=== PATIENT | female | born 1965 | race American Indian/Alaskan Native ===

== ENCOUNTER 2017-05-12 14:42 | Emergency (ER) | payer OTHER ==
[2017-05-12 14:51] VITALS: BP 167/92
[2017-05-12] MEDS ORDERED: NORCO 7.5/325 PO ONE (15:12)
[2017-05-12] MEDS ORDERED: BOOSTRIX IM ONE (15:12)
--- NOTE | 2017-05-12 15:16 | Emergency Department Report ---
Abscess Boil HPI - HPI Chief Complaint: Skin/Abscess/Foreign Body Stated Complaint: ABSCESS Time Seen by Provider: 05/12/17 14:55 Duration: 5 Days Location: Other (left buttock region) Severity: Mild History: Yes Pain, Yes Purulent Drainage, No Fever, No Numbness, No Foreign Body , No Previous History, No Insect Bite HPI: This is a 51-year-old female nontoxic, well nourished in appearance, no acute signs of distress presents to the ED with c/o of abscess to the left buttock region. Patient stated that yesterday there was greater than occur. He denies any fever, chills, nausea, vomiting, chest pain shortness of breath. Patient denies up-to-date with tetanus. Denies any allergies. Past medical history includes hypertension. Home Medications: Home Medications Medication Instructions Recorded Confirmed Last Taken Lisinopril/Hydrochlorothiazide 1 tab PO QDAY 03/19/15 03/19/15 1 Day Ago [Zestoretic 10-12.5 mg] ~03/18/15 amLODIPine [Norvasc] 10 mg PO DAILY 03/19/15 03/19/15 1 Day Ago ~03/18/15 Previous Rx's Medication Instructions Recorded Last Taken Type Ibuprofen [Motrin] 800 mg PO Q8HR PRN #10 tablet 03/19/15 Unknown Rx Clindamycin [Clindamycin CAP] 300 mg PO Q8H 7 Days cap 05/12/17 Unknown Rx traMADol [Ultram] 50 mg PO Q6HR PRN #15 tablet 05/12/17 Unknown Rx Allergies/Adverse Reactions: Allergies Allergy/AdvReac Type Severity Reaction Status Date / Time No Known Allergies Allergy Unverified 03/19/15 10:39 ED Review of Systems ROS: Stated complaint: ABSCESS Other details as noted in HPI Constitutional: denies: chills, fever Eyes: denies: eye pain, eye discharge, vision change ENT: denies: ear pain, throat pain Respiratory: denies: cough, shortness of breath, wheezing Cardiovascular: denies: chest pain, palpitations Endocrine: no symptoms reported Gastrointestinal: denies: abdominal pain, nausea, diarrhea Genitourinary: denies: urgency, dysuria, discharge Musculoskeletal: denies: back pain, joint swelling, arthralgia Skin: denies: rash, lesions Neurological: denies: headache, weakness, paresthesias Psychiatric: denies: anxiety, depression Hematological/Lymphatic: denies: easy bleeding, easy bruising ED Past Medical Hx - Past Medical History Previous Medical History?: Yes Hx Hypertension: Yes - Surgical History Past Surgical History?: Yes Additional Surgical History: hysterectomy. D&C. tonsillectomy. rotator cuff - Social History Smoking Status: Never Smoker Substance Use Type: None - Medications Home Medications: Home Medications Medication Instructions Recorded Confirmed Last Taken Type Ibuprofen [Motrin] 800 mg PO Q8HR PRN #10 tablet 03/19/15 Unknown Rx Lisinopril/Hydrochlorothiazide 1 tab PO QDAY 03/19/15 03/19/15 1 Day Ago History [Zestoretic 10-12.5 mg] ~03/18/15 amLODIPine [Norvasc] 10 mg PO DAILY 03/19/15 03/19/15 1 Day Ago History ~03/18/15 Clindamycin [Clindamycin CAP] 300 mg PO Q8H 7 Days cap 05/12/17 Unknown Rx traMADol [Ultram] 50 mg PO Q6HR PRN #15 tablet 05/12/17 Unknown Rx ED Abscess Boil Physical Exam - Exam General: Vital signs noted. No distress. Alert and acting appropriately. GENERAL: The patient is a well-developed, well-nourished in no apparent distress. Patient is alert and acting appropriately for age. Alert and oriented 3, no apparent distress, normal gait, atraumatic. HEENT: Head is normocephalic and atraumatic. PERRL, Extraocular muscles are intact. Pupils are equal, round, and reactive to light and accommodation. Nares appeared normal. Mouth is well hydrated and without lesions. Mucous membranes are moist. Posterior pharynx clear of any exudate or lesions. Mouth is well hydrated and without lesions. Tonsils not erythematous or swollen. Uvula midline. Tongue elevated. Mucous members are moist. Posterior pharynx clear, no exudate or lesions. Patent airways. NECK: Supple. No carotid bruits. No lymphadenopathy or thyromegaly.nontender. No meningitic signs are noted. LUNGS: Clear to auscultation. Non labor breathing. No intercostal retractions. Symmetrical with respiration, no wheezing, no rales, or crackles. HEART: Regular rate and rhythm without murmur, rubs or gallops. No reproducible. S1, S2 present, regular rate and rhythm without murmur, no rubs, no gallops. ABDOMEN: Soft, nontender, and nondistended. Positive bowel sounds. No hepatosplenomegaly was noted. No guarding or rebound tenderness, negative epigastric bruit. Negative psoas sign, negative duke sign, negative McBurneys sign EXTREMITIES: Without any cyanosis, clubbing, rash, lesions or edema. Peripheral pulses intact. Capillary refill less than 2 seconds. Full range of motion bilaterally. NEUROLOGIC: Cranial nerves II through XII are grossly intact. Alert and oriented x 3. Normal gait. Symmetrical strength and sensation. Reflexes 2+ throughout. Cerebellar testing normal. GCS score of 15. PSYCHIATRIC: Normal affect with no suicidal or homicidal ideations. Skin: 3 cm erythema, swelling to left buttock region. Positive induration and flutance noted. Slight drainage noted. Front/Back of Body, Lg (Color): 1 - abscess Size: 3 cm Exam: Yes Tenderness, Yes Fluctuance, Yes Normal Neurologic Exam, Yes Normal Circulation, No Surrounding Cellulites/Erythema, No Lymphangitis, No Crepitation , No Heart Murmur I & D Note - I & D Note I & D Note: Under sterile field, I used Betadine to cleanse the area. I then used 0.1% Marcaine plain with 25-gauge 5/8 needle to inject area for anesthetic purposes. Total volume injected 3 mL. I then used an 11 blade to make a 1 cm incision. About 5 mL's of purulent drainage has been noted. I then used a hemostat to break the abscess formation. I then used sterile 0.9% normal saline flush to flush the wound with total volume of 40 mL used. I then put a 1 /4 iodoform packing to the incision. A sterile 4 x 4 with tape has been applied as dressing. Bleeding is under control. Patient tolerated the procedure well with no signs of distress noted. ED Course Vital Signs 05/12/17 14:46 Temperature 99.7 F H Pulse Rate 75 Respiratory 16 Rate Blood Pressure 167/92 O2 Sat by Pulse 100 Oximetry - Reevaluation(s) Reevaluation #1: 05/12/17 15:16 Patient is speaking in full sentences with no signs of distress noted. Critical care attestation.: If time is entered above; I have spent that time in minutes in the direct care of this critically ill patient, excluding procedure time. ED Medical Decision Making - Medical Decision Making This is a 51-year-old female that presents with abscess. Patient is stable and was examined by me. An incision and drainage has been performed and patient are well. Patient's friend Lesli Medel is present at the bedside and stated she will go the patient home after discharge due to drowsiness of [place]. Patient received a tetanus booster and ED. Patient was instructed to return and 2 days for packing removal and reassessment of the abscess. Patient is discharged with clindamycin. Patient was referred instructed to Follow-up with a primary care doctor in 3-5 days or if symptoms worsen and continue return to emergency room as soon as possible. At time of discharge, the patient does not seem toxic or ill in appearance. No acute signs of distress noted. Patient agrees to discharge treatment plan of care. No further questions noted by the patient.At time of discharge, the patient does not seem toxic or ill in appearance. No acute signs of distress noted. Patient agrees to discharge treatment plan of care. No further questions noted by the patient. ED Disposition Clinical Impression: Abscess, Encounter for incision and drainage procedure Disposition: DC-01 TO HOME OR SELFCARE Is pt being admited?: No Does the pt Need Aspirin: No Condition: Stable Instructions: Clindamycin (By mouth), Tramadol (By mouth), Abscess Incision and Drainage (ED), Abscess (ED) Additional Instructions: Follow-up with a primary care doctor in 3-5 days or if symptoms worsen and continue return to emergency room as soon as possible. Prescriptions: Clindamycin [Clindamycin CAP] 300 mg PO Q8H 7 Days cap traMADol [Ultram] 50 mg PO Q6HR PRN #15 tablet PRN Reason: Pain Referrals: PRIMARY CARE, [Primary Care Provider] - 3-5 Days YESICA AGUERO MD [Staff Physician] - 3-5 Days [facility] [Outside] - 3-5 Days [facility] [Outside] - 3-5 Days Forms: Work/School Release Form(ED)
[2017-05-12] MEDS ORDERED: MOTRIN PO ONE (15:18)
== END 2017-05-12 17:13 | disposition home or self-care (01) ==
LOC: ED 14:42
DX: L02.31 Cutaneous abscess of buttock (principal); I10 Essential (primary) hypertension
CPT/HCPCS: 90471; 90715

== ENCOUNTER 2017-05-15 13:57 | Emergency (ER) | payer OTHER ==
[2017-05-15 14:09] VITALS: BP 182/98
--- NOTE | 2017-05-15 14:12 | Emergency Department Report ---
ED Recheck HPI - General Chief Complaint: Skin/Abscess/Foreign Body Stated Complaint: WOUND CHECK Time Seen by Provider: 05/15/17 14:11 Source: patient Mode of arrival: Ambulatory Limitations: No Limitations - History of Present Illness Initial Comments: This is a 51-year-old female nontoxic, well nourished in appearance, no acute signs of distress presents to the ED with c/o of abscess packing removal from right buttock region. Patient stated she had this placed 3 days ago. Patient denies any fever, chills, headache, nausea, vomiting, chest pain, shortness of breathe, numbness, tingling. Patient denies any swelling. Patient stated swelling has subsided. Patient denies any allergies or PMH. PAtient stated is taking antibiotics. MD Complaint: wound re-check -: days(s) (3) Initial Visit For: abscess Returns Today for: wound recheck Symptoms Since Prior Visit: no new symptoms, improved Context: planned re-check Associated Symptoms: none. denies: fever, chills, chest pain, shortness of breath, rash, malaise, [place], abdominal pain - Related Data Home Medications Medication Instructions Recorded Confirmed Last Taken Lisinopril/Hydrochlorothiazide 1 tab PO QDAY 03/19/15 03/19/15 1 Day Ago [Zestoretic 10-12.5 mg] ~03/18/15 amLODIPine [Norvasc] 10 mg PO DAILY 03/19/15 03/19/15 1 Day Ago ~03/18/15 Previous Rx's Medication Instructions Recorded Last Taken Type Ibuprofen [Motrin] 800 mg PO Q8HR PRN #10 tablet 03/19/15 Unknown Rx Clindamycin [Clindamycin CAP] 300 mg PO Q8H 7 Days cap 05/12/17 Unknown Rx traMADol [Ultram] 50 mg PO Q6HR PRN #15 tablet 05/12/17 Unknown Rx Allergies Allergy/AdvReac Type Severity Reaction Status Date / Time No Known Allergies Allergy Unverified 03/19/15 10:39 ED Review of Systems ROS: Stated complaint: WOUND CHECK Other details as noted in HPI Constitutional: denies: chills, fever Eyes: denies: eye pain, eye discharge, vision change ENT: denies: ear pain, throat pain Respiratory: denies: cough, shortness of breath, wheezing Cardiovascular: denies: chest pain, palpitations Endocrine: no symptoms reported Gastrointestinal: denies: abdominal pain, nausea, diarrhea Genitourinary: denies: urgency, dysuria, discharge Musculoskeletal: denies: back pain, joint swelling, arthralgia Skin: denies: rash, lesions Neurological: denies: headache, weakness, paresthesias Psychiatric: denies: anxiety, depression Hematological/Lymphatic: denies: easy bleeding, easy bruising ED Past Medical Hx - Past Medical History Hx Hypertension: Yes Additional medical history: abscess I&d - Surgical History Additional Surgical History: hysterectomy. D&C. tonsillectomy. rotator cuff - Social History Smoking Status: Never Smoker Substance Use Type: None - Medications Home Medications: Home Medications Medication Instructions Recorded Confirmed Last Taken Type Ibuprofen [Motrin] 800 mg PO Q8HR PRN #10 tablet 03/19/15 Unknown Rx Lisinopril/Hydrochlorothiazide 1 tab PO QDAY 03/19/15 03/19/15 1 Day Ago History [Zestoretic 10-12.5 mg] ~03/18/15 amLODIPine [Norvasc] 10 mg PO DAILY 03/19/15 03/19/15 1 Day Ago History ~03/18/15 Clindamycin [Clindamycin CAP] 300 mg PO Q8H 7 Days cap 05/12/17 Unknown Rx traMADol [Ultram] 50 mg PO Q6HR PRN #15 tablet 05/12/17 Unknown Rx ED Physical Exam - General Limitations: No Limitations General appearance: alert, in no apparent distress - Head Head exam: Present: atraumatic, normocephalic - Eye Eye exam: Present: normal appearance - ENT ENT exam: Present: mucous membranes moist - Neck Neck exam: Present: normal inspection - Respiratory Respiratory exam: Present: normal lung sounds bilaterally. Absent: respiratory distress - Cardiovascular Cardiovascular Exam: Present: regular rate, normal rhythm. Absent: systolic murmur, diastolic murmur, rubs, gallop - GI/Abdominal GI/Abdominal exam: Present: soft, normal bowel sounds - Extremities Exam Extremities exam: Present: normal inspection - Back Exam Back exam: Present: normal inspection - Neurological Exam Neurological exam: Present: alert, oriented X3 - Psychiatric Psychiatric exam: Present: normal affect, normal mood - Skin Skin exam: Present: warm, dry, intact, normal color. Absent: rash - Other Other exam information: 2 cm incision of 1/4 packing. No pus or drainage noted. No swelling or induration noted. No surrounding cellulitis noted. ED Course Vital Signs 05/15/17 14:07 Temperature 98.3 F Pulse Rate 69 Respiratory 18 Rate Blood Pressure 182/98 O2 Sat by Pulse 100 Oximetry - Reevaluation(s) Reevaluation #1: 05/15/17 15:29 Patient is speaking in full sentences with no signs of distress noted. ED Recheck MDM - Medical Decision Making This is a 51-year-old female that presents with packing removal. One fourth 4 packing removed. No pus or drainage noted. No induration or fluctuance. No cellulitis or abscess formation. Patient will take antibiotics and I encouraged her to finish it. Patient was educated on proper wound care. At time of discharge, the patient does not seem toxic or ill in appearance. No acute signs of distress noted. Patient agrees to discharge treatment plan of care. No further questions noted by the patient. Critical care attestation.: If time is entered above; I have spent that time in minutes in the direct care of this critically ill patient, excluding procedure time. ED Disposition Clinical Impression: Encounter for wound re-check, Abscess packing removal Disposition: DC-01 TO HOME OR SELFCARE Is pt being admited?: No Does the pt Need Aspirin: No Condition: Stable Instructions: Acute Wound Care (ED) Additional Instructions: Follow-up with a primary care doctor in 3-5 days or if symptoms worsen and continue return to emergency room as soon as possible. Continue taking Antibiotics as prescribed. Referrals: PRIMARY CARE, [Primary Care Provider] - 3-5 Days Forms: Work/School Release Form(ED)
== END 2017-05-15 15:43 | disposition home or self-care (01) ==
LOC: ED 13:57
DX: Z48.01 Encounter for change or removal of surgical wound dressing (principal); I10 Essential (primary) hypertension
CPT/HCPCS: 99282

== ENCOUNTER 2017-06-29 16:14 | Emergency (ER) | payer OTHER ==
[2017-06-29] MEDS ORDERED: FIORICET PO ONE (23:07)
--- NOTE | 2017-06-29 23:25 | Emergency Department Report ---
HPI - General Chief Complaint: High BP Time Seen by Provider: 06/29/17 23:07 - HPI HPI: Patient is a 51-year-old female with a history of blood pressure presents to ED for elevated blood pressure. Patient states she was at her primary care doctor office earlier today when her blood pressure was 210/110. Patient was sent home to take her blood pressure medication. Patient states she took her blood pressure medicine to bring the pressure. Patient states she went to the pharmacy to berry picker her nifedipine which she took prior to arrival at the ED which brought her blood pressure down. Patient states that she is experiencing headache couple of hours ago which may be due to the fact that she has not eaten any food since 4 o clock today. She denies chest pain shortness of breath , dizziness, lightheadedness, blurred vision or any other symptoms ED Past Medical Hx - Past Medical History Hx Hypertension: Yes Additional medical history: abscess I&d - Surgical History Past Surgical History?: Yes Additional Surgical History: hysterectomy. D&C. tonsillectomy. rotator cuff - Social History Smoking Status: Never Smoker Substance Use Type: None - Medications Home Medications: Home Medications Medication Instructions Recorded Confirmed Last Taken Type Ibuprofen [Motrin] 800 mg PO Q8HR PRN #10 tablet 03/19/15 Unknown Rx Lisinopril/Hydrochlorothiazide 1 tab PO QDAY 03/19/15 03/19/15 1 Day Ago History [Zestoretic 10-12.5 mg] ~03/18/15 amLODIPine [Norvasc] 10 mg PO DAILY 03/19/15 03/19/15 1 Day Ago History ~03/18/15 Clindamycin [Clindamycin CAP] 300 mg PO Q8H 7 Days cap 05/12/17 Unknown Rx traMADol [Ultram] 50 mg PO Q6HR PRN #15 tablet 05/12/17 Unknown Rx ED Review of Systems ROS: Stated complaint: HTN Other details as noted in HPI Constitutional: denies: chills, fever Eyes: denies: eye pain, eye discharge, vision change ENT: denies: ear pain, throat pain Respiratory: denies: cough, shortness of breath, wheezing Cardiovascular: denies: chest pain, palpitations Endocrine: no symptoms reported Gastrointestinal: denies: abdominal pain, nausea, diarrhea Genitourinary: denies: urgency, dysuria, discharge Musculoskeletal: denies: back pain, joint swelling, arthralgia Skin: denies: rash, lesions Neurological: denies: headache, weakness, paresthesias Psychiatric: denies: anxiety, depression Hematological/Lymphatic: denies: easy bleeding, easy bruising Physical Exam - Physical Exam Vital Signs: Vital Signs 06/29/17 16:32 Temperature 98.3 F Pulse Rate 56 L Blood Pressure 168/101 O2 Sat by Pulse 100 Oximetry Physical Exam: GENERAL: Alert and oriented x3, no apparent distress, Normal Gait, atraumatic. HEAD: Head is normocephalic and a-traumatic. EYES: Extra ocular muscles are intact. Pupils are equal, round, and reactive to light and accommodation. NECK: Supple. Non edematous, No lymphadenopathy or thyromegaly. No C-spine tenderness LUNGS: Symetrical with respiration, No wheezing, no rales or crackles, CTAB. HEART: S1, S2 present, regular rate and rhythm without murmur, no rubs, no gallops. Non tender to palpation EXTREMITIES/MUSCULOSKELETAL: No cyanosis, clubbing, rash, lesions or edema. Full ROM bilaterally. NEUROLOGIC: The patient is cooperative with no focal neurologic deficits. Cranial nerves II through XII are grossly intact. Normal speech. Normal sensation in bilateral upper and lower extremities, No loss of sensation, SKIN: Warm and dry, No lesions, No ulceration or induration present. ED Course Vital Signs 06/29/17 16:32 Temperature 98.3 F Pulse Rate 56 L Blood Pressure 168/101 O2 Sat by Pulse 100 Oximetry ED Medical Decision Making - Medical Decision Making 51-year-old female presents with elevated blood pressure. ED course: Patient received Fioricet in the ED for headache and some snacks/ food. EKG was obtained. EKG which shows no a abnormality within normal limits. I discussed this with the patient. Discussed patient to continue taking her blood pressure medication. Patient was not given medication ED due normalized blood pressure here in the ED. I discussed the patient to monitor blood pressure daily and take blood pressure medication as needed I also discussed follow-up with the primary care physician to manage and treat her hypertension and possibly change her dosing is current medication is not manage her blood pressure. Patient had no neurological deficit. Vital signs are normal she is in no acute or respiratory distress. Patient had an uneventful ED stay. Critical care attestation.: If time is entered above; I have spent that time in minutes in the direct care of this critically ill patient, excluding procedure time. ED Disposition Clinical Impression: Uncontrolled hypertension Disposition: DC-01 TO HOME OR SELFCARE Is pt being admited?: No Does the pt Need Aspirin: No Condition: Stable Instructions: Hypertension (ED) Additional Instructions: Make sure to follow up with your primary care physician as discussed. Continue to take Take l your medications as you've been prescribed. If you have any worsening symptoms or develop new symptoms please return to ED immediately. Referrals: PRIMARY CARE, [Primary Care Provider] - 3-5 Days Forms: Accompanied Note, Work/School Release Form(ED) Time of Disposition: 23:33
[2017-06-30 00:07] VITALS: BP 169/98
== END 2017-06-29 23:55 | disposition home or self-care (01) ==
LOC: ED 16:14
DX: I10 Essential (primary) hypertension (principal); Z90.710 Acquired absence of both cervix and uterus; Z90.89 Acquired absence of other organs
CPT/HCPCS: 93005; 93010; 99282

== ENCOUNTER 2017-07-04 18:43 | Emergency (ER) | payer OTHER ==
--- NOTE | 2017-07-05 01:31 | Emergency Department Report ---
HPI - General Chief Complaint: High BP Time Seen by Provider: 07/05/17 01:03 - HPI HPI: This is a 51-year-old female here concerned about her blood pressure. She says she has a history of high blood pressure and she was at work today and her blood pressure was very high and she says that the bottom one was 177 but was not sure whether it was the bottom where the top and said that it might have been the top one. She denies any shortness of breath or chest pain. She said earlier in the day she was having some neck pain and some dizziness that how she knew her blood pressure was elevated. She came to the emergency room and she is asymptomatic without any headache, dizziness, shortness of breath, chest pain, nausea or vomiting or blurred vision. Patient sees Dr. Rojas who is her primary care physician and she is on nifedipine and valsartan/HCTZ. Her pain is 0/10 at present. She did not take any medication for high blood pressure and was checked out by EMS that she call the work but decided that she would not come to the hospital by EMS and waited until she was off work to come to the hospital. Patient was here on 06/29/2017 with same complaint and was referred to her primary care physician. Her blood pressure was elevated with diastolic being a 101 but prior to discharge her blood pressure stabilized without any medication. She did not follow up with her primary care physician. ED Past Medical Hx - Past Medical History Previous Medical History?: Yes Hx Hypertension: Yes Additional medical history: abscess I&d - Surgical History Past Surgical History?: Yes Additional Surgical History: hysterectomy. D&C. tonsillectomy. rotator cuff repair right arm - Social History Smoking Status: Never Smoker Substance Use Type: Prescribed - Medications Home Medications: Home Medications Medication Instructions Recorded Confirmed Last Taken Type Ibuprofen [Motrin] 800 mg PO Q8HR PRN #10 tablet 03/19/15 Unknown Rx Lisinopril/Hydrochlorothiazide 1 tab PO QDAY 03/19/15 03/19/15 1 Day Ago History [Zestoretic 10-12.5 mg] ~03/18/15 amLODIPine [Norvasc] 10 mg PO DAILY 03/19/15 03/19/15 1 Day Ago History ~03/18/15 Clindamycin [Clindamycin CAP] 300 mg PO Q8H 7 Days cap 05/12/17 Unknown Rx traMADol [Ultram] 50 mg PO Q6HR PRN #15 tablet 05/12/17 Unknown Rx ED Review of Systems ROS: Stated complaint: HTN Other details as noted in HPI Comment: All other systems reviewed and negative Constitutional: no symptoms reported Eyes: denies: eye pain, vision change ENT: denies: epistaxis, congestion Respiratory: no symptoms reported Cardiovascular: other (patient here complaining of elevated blood pressure work today and she is asymptomatic and emergency room but reported that she had neck pain at work. She drove herself to the hospital). denies: chest pain, palpitations, dyspnea on exertion, orthopnea, edema, syncope, paroxysmal nocturnal dyspnea Gastrointestinal: denies: abdominal pain, nausea, vomiting, hematochezia Genitourinary: denies: hematuria Musculoskeletal: denies: back pain, joint swelling, arthralgia Skin: denies: rash Neurological: denies: headache, weakness, numbness, paresthesias, confusion, abnormal gait, vertigo, other Physical Exam - Physical Exam Vital Signs: Vital Signs 07/04/17 19:02 Temperature 98.6 F Pulse Rate 68 Respiratory 20 Rate Blood Pressure 143/95 O2 Sat by Pulse 100 Oximetry Vital Signs 07/04/17 07/05/17 07/05/17 19:02 01:40 01:58 Temperature 98.6 F 98.6 F Pulse Rate 68 54 L 55 L Respiratory 20 17 Rate Blood Pressure 143/95 Blood Pressure 151/89 [Left] Blood Pressure 148/85 [Right] O2 Sat by Pulse 100 100 Oximetry General: This Is a 51-year-old female well-nourished well-developed nontoxic in appearance. Physical Exam: Head: Normocephalic, atraumatic, no abrasion, no bruising and no contusion. Eyes: Biateral pupils equal and reactive to light, bilateral EOM intact.. Bilateral conjunctival and sclera without injection, normal accommodation. No nystagmus Mouth: Mucosa moist, no pharyngeal exudate or erythema. No peritonsillar abscesses. Uvula is midline and oral airways patent. Neck: Supple, No Cervical adenopathy, no carotid bruit, no JVD distention, full range of motion and no C-spine tenderness. No swelling or tracheal deviation normal reflexes Cardiovascular: S1, S2. Regular rate and rhythm. No murmur. Capillary refill is less then 3 seconds. Lungs: Clear to auscultate bilaterally. No rhonchi, wheezes or rales. No chest wall tenderness. No chest contusion. No bruising to chest. MSK: Strength 5/5 in all extremities. No joint deformity or crepitus. Normal inspection. Full range of motion to all extremities. No laceration, abrasion or ecchymotic area noted. Abdomen: Non-tender to palpate in all quadrants, no guarding or rebound tenderness, positive bowel sounds in all quadrants. No CVA tenderness. No hernia, bruit or mass. No rigidity or distention. Extremities: No clubbing, cyanosis or edema. +2 pulses. No neurovascular compromise Skin: Clean, dry and intact. No rash or lesions. Neurological: GCS at 15, Pt is alert and oriented 3 speech is clear . Bilateral hand bell person strong and equal. Normal gait. Negative Romberg and no pronator drift. Normal Reflexes. No motor or sensory deficit Back: No vertebral tenderness, no paraspinal tenderness. Ambulates without any difficulties. Psych: Normal mood and behavior ED Course Vital Signs 07/04/17 19:02 Temperature 98.6 F Pulse Rate 68 Respiratory 20 Rate Blood Pressure 143/95 O2 Sat by Pulse 100 Oximetry Vital Signs 07/04/17 07/05/17 07/05/17 19:02 01:40 01:58 Temperature 98.6 F 98.6 F Pulse Rate 68 54 L 55 L Respiratory 20 17 Rate Blood Pressure 143/95 Blood Pressure 151/89 [Left] Blood Pressure 148/85 [Right] O2 Sat by Pulse 100 100 Oximetry - Reevaluation(s) Reevaluation #1: 07/05/17 02:07 Patient is stable and her blood pressure stable throughout ED stay. ED Medical Decision Making - Medical Decision Making ED course: Patient reported that her blood pressure was elevated at work today and she was having some neck pain. Patient is asymptomatic and emergency room. Blood pressure remained stable throughout ED course although mildly elevated but not had any critical level. Patient is on losartan/HCTZ and she says she is on the site of pain. Her primary care doctor is Dr. Rojas and she was here on 06/29/2017 and was referred to Dr. Rojas but she did not make an appointment to see him. I discussed patient that she will need to schedule an appointment with her primary care physician to adjust medication if needed. I discussed with her that her blood pressure is not of the level where I need to adjust her medication at present. I also discussed with her lifestyle modification and ask her to read discharge instruction information on less than a modification to manage blood pressure. Patient says she takes her medication everyday. Discussed with her that she needs to obtain blood pressure machine and take her blood pressure every morning upon awakening in and record and called Dr. Rojas this morning to schedule an appointment for follow-up visit after being in emergency room 2 times within the last week for elevated blood pressure. I told her she needs to record blood pressure and take with her to primary care visit and they will adjust her medication as needed. Patient is requesting to have the day off. I discussed her to continue taking her blood pressure medication as prescribed. Discharge home in stable condition and force understanding the discharge instructions. Critical care attestation.: If time is entered above; I have spent that time in minutes in the direct care of this critically ill patient, excluding procedure time. ED Disposition Clinical Impression: Elevated blood pressure reading with diagnosis of hypertension Disposition: DC-01 TO HOME OR SELFCARE Is pt being admited?: No Does the pt Need Aspirin: No Condition: Stable Instructions: Hypertension (ED), DASH Eating Plan (ED), Low Sodium Diet (ED), Heart Healthy Diet (ED) Additional Instructions: Please call Dr. Rojas this morning to schedule an appointment for follow-up visit in 2-3 days. While you are waiting for appointment with a primary care please check your blood pressure daily and record and take to primary care visit with you Continue to take your blood pressure medication as prescribed Please see discharge information unless the modification to manage her blood pressure. Your primary care physician has to manage her blood pressure unless it is an urgency or emergency with a blood pressure because they will need to monitor your lab values as they're adjusting your blood pressure. Referrals: ERIC ROJAS MD [Primary Care Provider] - 2-3 Days Forms: Work/School Release Form(ED)
[2017-07-05 01:59] VITALS: BP 151/89
== END 2017-07-05 02:15 | disposition home or self-care (01) ==
LOC: ED 18:43
DX: I10 Essential (primary) hypertension (principal); M54.2 Cervicalgia; Z90.710 Acquired absence of both cervix and uterus; Z90.89 Acquired absence of other organs; Z79.899 Other long term (current) drug therapy
CPT/HCPCS: 99282